=== PATIENT | male | born 2005 | race Caucasian/White ===

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

== ENCOUNTER 2023-05-10 22:52 | Emergency (ER) | payer MEDICAID ==
[2023-05-11 00:28] LABS: BASOPHILS PERCENT AUTO 0.2 % (0.0-1.5); EOSINOPHILS ABSOLUTE AUTO 0.1 K/uL (0.0-0.7); EOSINOPHILS PERCENT AUTO 0.9 % (0.0-7.0); HEMATOCRIT 43.3 % (38.0-50.0); HEMOGLOBIN 14.3 g/dL (13.0-17.0); LYMPHOCYTES ABSOLUTE AUTO 2.8 K/uL (0.6-2.4); LYMPHOCYTES PERCENT AUTO 31.1 % (16.0-40.0); MEAN CORPUSCULAR HEMOGLOBIN 31.4 pg (27.0-32.0); MONOCYTES ABSOLUTE AUTO 0.5 K/uL (0.0-0.8); MONOCYTES PERCENT AUTO 5.8 % (0.0-15.0); NEUTROPHILS ABSOLUTE AUTO 5.5 K/uL (1.4-5.7); NRBC ABSOLUTE 0 K/uL; PLATELET COUNT,PLT 238 K/uL (150-400); RED BLOOD CELL COUNT 4.56 M/uL (4.50-5.90); WHITE BLOOD CELL COUNT,WBC 8.84 K/uL (4.0-11.0)
[2023-05-11 00:42] LABS: A/G RATIO 1.3 (0.9-1.6); ALBUMIN 4.3 g/dL (3.4-5.0); BILIRUBIN TOTAL 0.3 mg/dL (0.2-1.0); CARBON DIOXIDE,CO2 29.6 mmol/L (21.0-32.0); CREATININE 0.9 mg/dL (0.8-1.3); EST CRCL DRUG DOSING (CG) 117.08 mL/min; POTASSIUM,K 4.1 mmol/L (3.5-5.1); PROTEIN TOTAL,TP 7.6 g/dL (6.4-8.2)
[2023-05-11 02:32] VITALS: BP 121/60; PULSE 61
== END 2023-05-11 01:46 | disposition home or self-care (01) ==
LOC: MW.ED 22:52
DX: R05.9 Cough, unspecified (principal); R07.9 Chest pain, unspecified; Z87.891 Personal history of nicotine dependence; Z20.822 Contact with and (suspected) exposure to COVID-19
CPT/HCPCS: 36415; 71046; 71046-26; 80053; 85025; 85379; 93005; 99285; U0002

== ENCOUNTER 2023-07-10 22:18 | Emergency (ER) | payer SELFPAY ==
[2023-07-10] MEDS ORDERED: Albuterol/Ipratropium 3.0-0.5 MG/3 ML Neb Soln NEB ONE (22:38)
[2023-07-10] MEDS ORDERED: LORazepam 1 MG Tab PO ONE (22:38)
[2023-07-11 00:14] VITALS: BP 111/56; PULSE 78
== END 2023-07-11 00:13 | disposition home or self-care (01) ==
LOC: MW.ED 22:18
DX: R06.02 Shortness of breath (principal); F41.9 Anxiety disorder, unspecified
CPT/HCPCS: 71045; 94640; 99285; A9270; 99282; J7620-GY

== ENCOUNTER 2025-06-27 10:51 | Emergency (ER) | payer BC ==
[2025-06-27] MEDS: Lidocaine 2% Viscous Solution 15 ML UD PO ONE (11:29)
[2025-06-27] MEDS: Benzocaine 20% Topical Spray UD MUCMEM ONE (11:29)
[2025-06-27 11:32] VITALS: BP 118/75; PULSE 66
== END 2025-06-27 11:32 | disposition home or self-care (01) ==
LOC: MW.ED 10:51
DX: K04.7 Periapical abscess without sinus (principal); F17.200 Nicotine dependence, unspecified, uncomplicated; Z79.899 Other long term (current) drug therapy; Z75.3 Unavailability and inaccessibility of health-care facilities
CPT/HCPCS: 99282; A9270; J3490; 99283